=== PATIENT | male | born 1995 | race Caucasian/White ===

== ENCOUNTER 2025-08-06 18:16 | Emergency (ER) | payer OTHER, SELFPAY ==
[2025-08-06 18:17] VITALS: BP 131/97; PULSE 110; RESP 20; TEMP 36.6; O2SAT 97; BMI 24.6
--- NOTE | 2025-08-06 19:08 | RAD_ITS ---
PROCEDURE: RAD/Chest PA and Lateral
[2025-08-06 21:30] VITALS: BP 132/88; PULSE 83; RESP 18; O2SAT 99
--- NOTE | 2025-08-06 22:35 | EX.ED.GENINJ ---
HPI History of Present Illness Chief Complaint: Trauma Informant: patient Onset/Context/Timing Onset: Today Mechanism/Context: Blunt Injury and Fall Quality of Pain: Dull Location: Left lower chest, right upper back and neck Worsened by: Movement Relieved by: Rest Associated Symptoms Associated Symptoms: Negative for Parasthesias, Weakness, Loss of function, Inability to ambulate or Loss of consciousness Narrative Narrative: Patient presents with left chest pain that began tonight. Patient states that he was on his buggy and the horse took off. Patient states he landed on his left chest. Patient also complains of pain in his upper back and neck on the right. Patient denies any head injury or loss of consciousness. Patient describes his pain as dull. Patient states it is worse with movement and better with rest. Patient denies any paresthesias or weakness. Patient denies any other injuries. PFSH PFSH Medical History no medical history no medical history Home Medications ?Medication ?Instructions ?Recorded ?Last Taken ?Type NK 08/06/25 Unknown History Allergy/AdvReac Type Severity Reaction Status Date / Time No Known Allergies Allergy Verified 08/06/25 18:18 Surgical History no surgical history no surgical history Social History Smoking Status: Never smoker ROS ROS ED Constitutional Constitutional ED: Denies chills or fever(s) Eyes Eyes: Denies blurry vision or change in vision ENT ENT ED: Denies rhinorrhea or sore throat Cardiovascular Cardiovascular: Reports chest pain; Denies palpitations Respiratory/Chest Respiratory/Chest: Reports dyspnea; Denies cough Gastrointestinal Gastrointestinal: Denies nausea or vomiting Genitourinary Genitourinary ED: Denies dysuria or hematuria Musculoskeletal Musculoskeletal: Reports back pain and neck pain Integumentary Denies abscess or rash Neurologic Neurologic: Denies headache(s) or weakness Allergic/Immunologic Allergic/Immunologic ED: Denies mouth swelling or urticaria EXAM Physical Exam Const Vital Signs: 08/06/25 18:17 08/06/25 21:30 08/06/25 21:30 Temperature 97.8 F Temperature Source Oral Pulse Rate 110 H 83 Respiratory Rate 20 H 18 Respiratory Effort Normal Respiratory Depth Normal Respiratory Pattern Normal Blood Pressure 131/97 H 132/88 H Blood Pressure Mean 108 102 Pulse Ox 97 99 Oxygen Delivery Method Room Air Room Air Room Air Positive well nourished and well developed Constitutional Narrative: BMI is 24.6. General Appearance ED: well developed and NAD HEENT atraumatic; Negative for tenderness Neck full ROM Neck Narrative: There is mild tenderness over the right lower cervical paraspinal muscles. There is no midline tenderness. There is no bony crepitance or step-off. There is full range of motion of the cervical spine. Chest Wall inspection of chest normal Chest Narrative: There is mild tenderness over the left lower ribs. There is no bony crepitance or step-off. There is no subcutaneous emphysema palpated. Resp normal respiratory effort and clear to auscultation bilaterally Cardio regular rhythm Rate: regular rate GI non-tender and non-distended Palpation: soft Back/Spine normal to inspection Back/Spine Narrative: There is mild tenderness over the right upper thoracic paraspinal muscles. There is no midline tenderness. There is no bony crepitance or step-off. There is no tenderness over the scapula. There is good range of motion. Extremity normal to inspection and full ROM Neuro oriented x3, CN's II-XII intact bilaterally, moves all extremities, no focal motor deficits and no sensory deficits noted Geraldo Coma Scale: document GCS findings Spontaneous Obeys Commands Oriented 15 Sensorium / Orientation: alert Motor Exam: strength 5/5 throughout Psych mental status grossly normal MDM MDM MDM Narrative Medical decision making narrative: Differential diagnosis includes rib fracture, pneumothorax, contusion, and muscle strain. Chest x-ray will be obtained to assess for rib fracture and pneumothorax. Radiography Diagnostic Testing: Clinical Impression(s) from Imaging Studies Chest X-Ray 08/06/25 19:08 IMPRESSION: NO ACUTE FINDINGS. Reading Location: [facility] PA and lateral chest x-ray was obtained. There are 2 views. On my independent interpretation, lung martinez are clear. There is normal cardiac silhouette. Bony thorax is normal. There is no acute process noted. Radiologist also interpreted the x-ray and agrees. Treatment and Re-Evaluation Narrative: The patient was advised of his findings. Patient is feeling better on reevaluation. Patient was instructed to use ice to the area. Patient was instructed to take Tylenol or ibuprofen as needed for pain. Patient was instructed to follow-up with his primary care physician in 5 to 7 days. Patient understood and was agreeable with the plan. All questions were answered. Discharge Plan Triage Chief Complaint: Trauma ED Provider: Keven Paris Dx/Rx/DC Orders Clinical Impression: Chest wall contusion, Elevated blood pressure reading Instructions: ED Chest Wall Contusion Prescriptions: No Action NK Primary Care Provider: Care Physician,No Primary Referrals: Care Physician,No Primary [Primary Care Provider, Medical] Activity Restrictions/Additional Instructions: The ice to your chest wall. Take Tylenol or ibuprofen as needed for pain. Take 10-15 deep breaths every hour while you are awake to prevent pneumonia. Follow-up with your primary care physician in 5 to 7 days. Return if worse in any way. Print Language: Peruvian Disposition Disposition: Home, Self Care
[2025-08-06 22:49] VITALS: BP 125/85; PULSE 72; RESP 18; TEMP 36.6; O2SAT 97
== END 2025-08-06 22:54 | disposition home or self-care (01) ==
PROVIDERS: Emergency Provider Emergency Medicine; Visit Provider Emergency Medicine
DX: S20.20XA Contusion of thorax, unspecified, initial encounter (principal); R03.0 Elevated blood-pressure reading, without diagnosis of hypertension; W17.89XA Other fall from one level to another, initial encounter
CPT/HCPCS: 71046; 99282